=== PATIENT | male | born 1970 | race Caucasian/White ===

== ENCOUNTER → 2017-04-25 | Outpatient (CLI) | payer MEDICAID | LOC: SBRMNEURO 21:00 | PROVIDERS: ATTEND Physician Assistant Medical | DX: G47.33 Obstructive sleep apnea (adult) (pediatric) (principal); G47.36 Sleep related hypoventilation in conditions classified elsewhere; G47.52 REM sleep behavior disorder ==

== ENCOUNTER → 2017-06-06 | Outpatient (CLI) | payer MEDICAID | LOC: SBRMNEURO 23:29 | PROVIDERS: ATTEND Internal Medicine Pulmonary Disease | DX: G47.33 Obstructive sleep apnea (adult) (pediatric) (principal) ==